=== PATIENT | male | born 1960 | race Asian ===

== ENCOUNTER 2020-09-04 13:49 | Emergency (ER) | payer OTHER, MEDICAID ==
[~2020-09-04] VITALS: Ht 167.6 cm; Wt 78.0 kg
[2020-09-04 13:54] VITALS: BP_SYST 140
== END 2020-09-04 15:52 | disposition home or self-care (01) ==
LOC: SED 13:49
DX: S13.4XXA Sprain of ligaments of cervical spine, initial encounter (principal); S30.1XXA Contusion of abdominal wall, initial encounter; V49.40XA Driver injured in collision with unspecified motor vehicles in traffic accident, initial encounter; Y93.89 Activity, other specified; Y92.89 Other specified places as the place of occurrence of the external cause; Y99.8 Other external cause status
CPT/HCPCS: 71045; 72125-TC; 76376; 99285